=== PATIENT | female | born 1980 | race Caucasian/White ===

== ENCOUNTER 2016-11-29 18:52 | Emergency (ER) | payer OTHER ==
[~2016-11-29] VITALS: Ht 157.5 cm; Wt 83.5 kg
[~2016-11-29 18:52] MED LIST: NAPR-260 PO; TRAM50TA2 PO
[2016-11-29 18:56] VITALS: Ht 157.5 cm; Wt 83.5 kg
--- NOTE | 2016-11-29 19:13 | ERD ---
ER Documentation Chief Complaint Date/Time DATE: 11/29/16 TIME: 19:12 Chief Complaint c/o right knee pain x 1 month. No trauma. Worse with walking HPI This is a 36-year-old female presenting to the emergency department complaining of right knee pain for the past month. Patient describes the pain 10 out of 10 increased with movement and walking. Patient locates the pain in the peripatellar region and the posterior knee. She denies any swelling, trauma, fevers. Medications. Denies any recent traveling ROS All systems reviewed and are negative except as per history of present illness. Medications Home Meds Active Scripts Ibuprofen* (Ibuprofen*) 600 Mg Tablet, 600 MG PO Q6, #30 TAB Prov:LEATHA COY PA-C 11/29/16 Naproxen* (Naprosyn*) 500 Mg Tablet, 500 MG PO BID Y for PAIN AND/OR INFLAMMATION, #30 TAB Prov:VÍCTOR KEENE PA-C 11/20/15 Tramadol HCl (Tramadol HCl) 50 Mg Tablet, 50 MG PO Q4 Y for PAIN, #20 TAB Prov:VÍCTOR KEENE PA-C 11/20/15 Allergies Allergies: Coded Allergies: No Known Allergy (Verified , NKA, 11/20/15) PMhx/Soc History of Surgery: Yes ( section) Anesthesia Reaction: No Hx Neurological Disorder: Yes (hypothyroidism) Hx Respiratory Disorders: No Hx Cardiac Disorders: No Hx Psychiatric Problems: No Hx Miscellaneous Medical Probl: No Hx Alcohol Use: No Hx Substance Use: No Hx Tobacco Use: No Physical Exam Vitals Vital Signs Date Time Temp Pulse Resp B/P Pulse Ox O2 Delivery O2 Flow Rate FiO2 11/29/16 18:56 99.1 86 18 117/66 99 Physical Exam General: WD/WN, in no apparent distress, non-toxic appearing HENT: NC/AT Eyes: Conjunctiva normal Neck: Supple Pulm: Clear to auscultation, normal labored breathing; no wheezing/rales/ rhonchi heard CV: Good capillary refill GI: Non-distended, no guarding Back: No masses Ext: Palpation over the right knee and posterior knee, patient has full range of motion Neuro: Moves on all fours Skin: intact Psych: Normal mood Procedures/MDM Is a 36-year-old female presenting to the emergency department complaining of right knee pain for the past month. I have a low suspicion for fracture, dislocation DVT. Patient is appropriate to be discharged home to follow-up with the primary care physician. Ray of the right knee was done, there was no evidence of fracture dislocation or acute pathology. Patient was given prescriptions for ibuprofen. Javed bandage was placed. She stable to be discharged home Departure Diagnosis: Primary Impression: Knee pain Condition: Stable LEATHA COY PA-C Nov 29, 2016 19:13
--- NOTE | 2016-11-29 20:47 | RADRPT ---
PROCEDURE: X-ray right knee CLINICAL INDICATION: Pain TECHNIQUE: AP, lateral, and tunnel views of the right knee were obtained. COMPARISON: None. FINDINGS: There is no acute fracture. The visualized bones are normally aligned and the joint spaces are main tained. There is no evidence of a joint effusion. Bone mineralization is normal. The soft tissues a re unremarkable. IMPRESSION: Unremarkable right knee. RPTAT: PP .Tiera Clifford MD, MD Date Time Electronically viewed and signed by .Tiera Clifford MD, on 11/29/2016 20:46 .K/
[2016-11-29] MEDS ORDERED: IBUP-1542 PO (20:48)
[2016-11-29 21:09] VITALS: BP 115/77; PULSE 66; RESP 18; TEMP 98
== END 2016-11-29 21:09 | disposition home or self-care (01) ==
LOC: FTE 18:52
DX: M25.561 Pain in right knee (principal); E03.9 Hypothyroidism, unspecified
CPT/HCPCS: 73562; Z7502

== ENCOUNTER 2017-06-02 20:00 | Emergency (ER) | END 2017-06-03 02:02 | disposition home or self-care (01) ==

== ENCOUNTER 2017-11-29 15:14 | Emergency (ER) | END 2017-11-29 20:47 | disposition home or self-care (01) ==

== ENCOUNTER 2018-01-03 10:09 | Day surgery (SDC) | END 2018-01-03 16:10 | disposition home or self-care (01) ==

== ENCOUNTER 2018-09-21 20:26 | Emergency (ER) | payer OTHER ==
[~2018-09-21] VITALS: Ht 157.5 cm; Wt 90.2 kg
[~2018-09-21 20:26] MED LIST changes: +IBUP-1542 PO; +LEVO200T45 PO; -NAPR-260 PO; +ONDA4TAB13 PO; -TRAM50TA2 PO
[2018-09-21 20:39] VITALS: Ht 157.5 cm; Wt 90.2 kg
[2018-09-21] MEDS ORDERED: SOD CHLORIDE 0.9% 1,000 ML IV STA (22:50)
[2018-09-21] MEDS ORDERED: ONDANSETRON 4 MG INJ IV STA (22:50)
--- NOTE | 2018-09-22 03:20 | ERD ---
ER Documentation Chief Complaint Chief Complaint abdominal pain x 2 weeks, worse today. also c/o n/v HPI This is a 38-year-old female with a past medical history of hypothyroidism, previous cholecystectomy, who is presenting with 2 weeks of waxing and waning cramping aching dull general abdominal pain, worse in the right lower quadrant with associated nausea and a few episodes of nonbilious nonbloody vomiting. The patient denies any constipation or diarrhea. She has not had any black or bloody or tarry stools. She denies dysuria or hematuria or urgency or frequency. She does not endorse any vaginal bleeding or burning or pain or discharge. She does not endorse any alleviating or exacerbating factors. It is not associated with food. The patient denies feeling sick recently. The patient denies fever or chills. The patient has had no headache or vision changes. The patient does not endorse neck or back pain. The patient denies lightheadedness or dizziness. The patient has had no chest pain or trouble breathing. The patient has had no focal deficits. The patient has had no weakness or numbness or tingling to the face or extremities. ROS All systems reviewed and are negative except as per history of present illness. Medications Home Meds Reported Medications Ibuprofen* (Ibuprofen*) 600 Mg Tablet, 600 MG PO Q6H for PAIN 09/22/18 Levothyroxine Sodium* (Levoxyl*) 200 Mcg Tablet, 200 MCG PO BEFORE BREAKFAST, #30 TAB 01/03/18 Allergies Allergies: Coded Allergies: No Known Allergy (Unverified , NKA, 09/22/18) PMhx/Soc History of Surgery: Yes (,total cholecystectomy) Anesthesia Reaction: No Hx Neurological Disorder: No Hx Respiratory Disorders: No Hx Cardiac Disorders: No Hx Psychiatric Problems: No Hx Miscellaneous Medical Probl: Yes (thryoid problem) Hx Alcohol Use: No Hx Substance Use: No Hx Tobacco Use: No Smoking Status: Never smoker FmHx Family History: No diabetes Physical Exam Vitals Vital Signs Date Temp Pulse Resp B/P (MAP) Pulse Ox O2 O2 Flow FiO2 Time Delivery Rate 09/22/18 65 14 102/70 100 Room Air 03:00 (81) 09/22/18 70 14 113/76 100 Room Air 02:30 (88) 09/22/18 71 14 109/83 100 Room Air 02:00 (92) 09/22/18 63 13 96/65 (75) 100 Room Air 01:30 09/22/18 61 13 105/77 100 Room Air 01:00 (86) 09/22/18 64 14 109/72 100 Room Air 00:30 (84) 09/22/18 60 12 103/73 100 Room Air 00:00 (83) 09/21/18 67 14 109/71 100 Room Air 23:30 (84) 09/21/18 68 20 117/78 100 Room Air 23:01 (91) 09/21/18 99.2 77 18 127/79 98 20:39 (95) Physical Exam Const: No acute distress Head: Atraumatic Eyes: Normal Conjunctiva ENT: Normal External Ears, Nose and Mouth. Neck: Full range of motion. No meningismus. Resp: Clear to auscultation bilaterally Cardio: Regular rate and rhythm, no murmurs Abd: Soft, non distended. Right lower quadrant abdominal tenderness, mild. No guarding or rebound. Normal bowel sounds Skin: No petechiae or rashes Back: No midline or flank tenderness Ext: No cyanosis, or edema Neur: Awake and alert Psych: Normal Mood and Affect Result Diagram: 09/21/18230709/21/182307 Results 24 hrs Laboratory Tests Test 09/21/18 23:08 09/21/18 23:22 09/21/18 23:34 White Blood Count 9.4 10^3/ul Red Blood Count 4.06 10^6/ul Hemoglobin 11.8 g/dl Hematocrit 36.0 % Mean Corpuscular Volume 88.7 fl Mean Corpuscular Hemoglobin 29.1 pg Mean Corpuscular 32.8 g/dl Hemoglobin Concent Red Cell Distribution Width 13.1 % Platelet Count 238 10^3/UL Mean Platelet Volume 10.5 fl Immature Granulocytes % 0.300 % Neutrophils % 59.4 % Lymphocytes % 29.4 % Monocytes % 7.7 % Eosinophils % 2.8 % Basophils % 0.4 % Nucleated Red Blood Cells % 0.0 /100WBC Immature Granulocytes # 0.030 10^3/ul Neutrophils # 5.6 10^3/ul Lymphocytes # 2.8 10^3/ul Monocytes # 0.7 10^3/ul Eosinophils # 0.3 10^3/ul Basophils # 0.0 10^3/ul Nucleated Red Blood Cells # 0.0 10^3/ul Sodium Level 141 mmol/L Potassium Level 3.4 mmol/L Chloride Level 109 mmol/L Carbon Dioxide Level 23 mmol/L Anion Gap 9 Blood Urea Nitrogen 13 mg/dl Creatinine 0.94 mg/dl Est Glomerular Filtrat > 60 mL/min Rate mL/min Glucose Level 107 mg/dl Calcium Level 9.0 mg/dl Total Bilirubin 0.3 mg/dl Direct Bilirubin 0.00 mg/dl Indirect Bilirubin 0.3 mg/dl Aspartate Amino 30 IU/L Transf (AST/SGOT) Alanine 44 IU/L Aminotransferase (ALT/SGPT) Alkaline Phosphatase 79 IU/L Total Protein 8.0 g/dl Albumin 4.1 g/dl Globulin 3.90 g/dl Albumin/Globulin Ratio 1.05 Lipase 133 U/L Urine Color YELLOW Urine Clarity CLEAR Urine pH 5.0 Urine Specific [place] 1.019 Urine Ketones NEGATIVE mg/dL Urine Nitrite NEGATIVE mg/dL Urine Bilirubin NEGATIVE mg/dL Urine Urobilinogen NEGATIVE mg/dL Urine Leukocyte Esterase NEGATIVE [place]/ul Urine Microscopic RBC 2 /HPF Urine Microscopic WBC 2 /HPF Urine Squamous Epithelial Cells FEW /HPF Urine Hemoglobin 1+ mg/dL Urine Glucose NEGATIVE mg/dL Urine Total Protein NEGATIVE mg/dl POC Beta HCG, Qualitative NEGATIVE Current Medications Medications Dose Sig/Rebecca Start Time Status Last (Trade) Ordered Route PRN Stop Time Admin Dose Reason Admin Sodium 1,000 ml @ Q1H STAT 09/21/18 DC 09/21/18 Chloride 1,000 mls/hr IV 22:50 23:18 09/21/18 23:49 Ondansetron 4 mg ONCE STAT 09/21/18 DC 09/21/18 HCl (Zofran IV 22:50 23:18 Inj) 09/21/18 22:51 Procedures/MDM MDM The patient's presentation warrants further investigation. Previous medical records, if available, were reviewed. LABS The patient's laboratory testing was obtained and reviewed. No emergent treatment was required unless described below. CBC: Mild normocytic anemia, not emergent. No E/o systemic infection or thrombocytopenia Chemistry: Mild hypokalemia, not emergent. No E/o severe acidosis or alkalosis or renal failure or liver disease or diabetic ketoacidosis Lipase: No E/o pancreatitis Urine: No E/o acute infection or hematuria hCG: Negative IMAGING Imaging and Radiology interpretation reviewed. CXR FINDINGS: The heart is not enlarged. Mediastinum is not widened. No hilar masses seen. Lungs are clear of any infiltrates. There is no effusion or pneumothorax. The osseous structures appear normal. IMPRESSION: No evidence for active cardiopulmonary disease. Electronically viewed and signed by .López Kearney MD, MD on 09/21/2018 23:12 CT Abd/Pelvis FINDINGS: Status post prior cholecystectomy. No evidence of biliary ductal dilation. Liver spleen pancreas and adrenal glands are unremarkable. Stomach, small bowel, large bowel and appendix are unremarkable. Kidneys normal in size without hydronephrosis or intra masses bilaterally. 9 x 3 mm non-obstructing inferior left renal calcified calculus. No other calcified renal calculi. No evidence ureteral calcified calculi or dilatation. Distended urinary bladder otherwise unremarkable. Anteverted anteflexed uterus. No adnexal masses. No evidence of intra-abdominal free air free fluid or abscess. Note that in the right mid mesentery are several nonspecific lymph nodes as well as a mildly enlarged lymph node short axis 1.1 cm. Mesenteric lymphadenitis is a possibility. Recommend clinical correlation and follow-up. Lung bases unremarkable. Aorta unremarkable. Abdominal pelvic wall unremarkable. Minimal degenerate changes lower thoracic and lumbar spine without acute osseous findings are osteoblastic/osteolytic lesions. IMPRESSION: 1. 9 x 3 mm non-obstructing inferior left renal calcified calculus. No other calcified calculi. No obstructive uropathy bilaterally. 2. Mild enlarged right mid mesenteric lymph node short axis 1.1 cm with additional nonspecific lymph nodes in the right mid abdomen. Rule out mesenteric lymphadenitis. Follow-up is suggested. 3. No gastrointestinal disease. 4. Status post prior cholecystectomy. No biliary ductal dilation. Electronically viewed and signed by Physician Kumar on 09/22/2018 02:31 TREATMENT/DISPOSITION The patient CT scan reveals mesenteric adenitis, which is certainly the point possible etiology of her symptoms. There is no evidence of appendicitis. There is no evidence of viscus perforation. The patient does not have any evidence of peritonitis. The patient does not have clinical symptoms concerning for mesenteric ischemia or ischemic colitis. The patient does not have right upper quadrant tenderness, and I have low suspicion for gallstones, cholecystitis or biliary colic. The patient does not have any epigastric pain. I have low suspicion for gastritis, PUD or GERD. The patient does not have left upper quadrant tenderness. I have low suspicion for pancreatitis. The patient does not have suprapubic tenderness. I have decreased suspicion for cystitis. The patient does not have any left lower quadrant tenderness, and I have low suspicion for diverticulosis or diverticulitis. The patient does not have any flank tenderness. The patient does not have gross hematuria. I have decreased suspicion for nephrolithiasis or renal colic. The patient does not have any palpable pulsatile mass or severe abdominal pain radiating to the back. I have low suspicion for aortic aneurysm, dissection or rupture. DISCHARGE Upon reevaluation of the patient, symptoms have improved. No emergent diagnoses were identified. At this time, I feel that the patient stable for discharge. The patient was instructed to follow-up with a primary care physician in 1-3 days. The patient will be given strict precautions with which to return to the emergency department. Prescriptions: Ibuprofen, Zofran DISCLAIMER Inadvertent spelling and grammatical errors are likely due to EHR/dictation software use and do not reflect on the overall quality of patient care. Note that the electronic time recorded on this note does not necessarily reflect the actual time of the patient encounter. Departure Diagnosis: Primary Impression: Mesenteric adenitis Additional Impressions: Right lower quadrant abdominal pain Nausea & vomiting Vomiting type: unspecified Vomiting Intractability: non-intractable Qual ified Codes: R11.2 - Nausea with vomiting, unspecified Normocytic anemia Hypokalemia Condition: Stable Patient Instructions: Abdominal Pain, Adenitis, Mesenteric, Nausea and Vomiting-Adult Additional Instructions: Thank you for for coming to [facility] [place] [facility] for your care today. Please ask your nurse or provider if you have questions about your care today and do not leave until all your questions have been answered. Please use any medications given as directed and follow-up with your doctor (or the doctor you were referred to) in the next 1-3 days. If you do not have a primary care doctor you may follow up at the [facility] or [facility] (listed below). You may also use motrin and tylenol as needed for fever and/or pain unless instructed otherwise by your provider or nurse. Indications for more urgent follow-up have been discussed, but you may return to the Emergency Department at ANY time for any worrisome or worsening symptoms. If you have abdominal pain, please know that no test or exam you received is perfect and you should follow up within 8 hours for continued pain. If you had any imaging studies today, such as an X-Ray or CT Scan, these studies will be reviewed later by a radiologist. You will be called if there are important findings that were not identified today, so make sure the contact information you provided at registration is correct. If you received any narcotic pain control medicine today, such as Vicodin, Morphine or Dilaudid, your coordination and judgment may be affected for a number of hours. Please do not drive or operate heavy machinery, and you may want someone to assist you at home. If you were given a prescription for narcotic medication, be aware that it is very addictive- use sparingly and only if necessary. PLEASE SEEK FURTHER EVALUATION AND MANAGEMENT AT YOUR DOCTORS OFFICE WITHIN THE NEXT 1-3 DAYS. IT IS YOUR RESPONSIBILITY TO MAKE AN APPOINTMENT FOR FOLOW-UP CARE. IF YOU HAVE A PRIMARY DOCTOR, PLEASE CALL THEIR OFFICE TO SCHEDULE AN APPOINTMENT FOR FOLLOW UP. IF YOU DO NOT HAVE A PRIMARY DOCTOR YOU CAN CALL OUR PHYSICIAN REFERRAL HOTLINE AT IF YOU CAN NOT AFFORD TO SEE A PHYSICIAN YOU CAN CHOSE FROM THE FOLLOWING [facility] CLINICS: [facility] [address] [facility]. [facility] [address] [facility] [address] [address] [facility] [facility] [address] [facility]. [facility]. [address] JAMIE IRBY MD Sep 22, 2018 03:20
[2018-09-22 03:58] VITALS: BP 108/72; PULSE 69; RESP 15
== END 2018-09-22 03:58 | disposition home or self-care (01) ==
LOC: E/R 20:26
DX: I88.0 Nonspecific mesenteric lymphadenitis (principal); E03.9 Hypothyroidism, unspecified; D64.9 Anemia, unspecified; E87.6 Hypokalemia; R40.2142 Coma scale, eyes open, spontaneous, at arrival to emergency department; R40.2362 Coma scale, best motor response, obeys commands, at arrival to emergency department; R40.2252 Coma scale, best verbal response, oriented, at arrival to emergency department
CPT/HCPCS: 36415; 71045; 74176; 80053; 81001; 81025; 83690; 85025; 96361; 96374; J2405; J7030; Z7502